=== PATIENT | female | born 2005 | race Caucasian/White ===

== ENCOUNTER → 2023-12-17 08:15 | Outpatient (BNV) | payer OTHER, SELFPAY | PROVIDERS: Visit Provider Psychiatry & Neurology Psychiatry | DX: F33.1 Major depressive disorder, recurrent, moderate (principal); F34.89 Other specified persistent mood disorders; F90.9 Attention-deficit hyperactivity disorder, unspecified type; F41.1 Generalized anxiety disorder; F43.12 Post-traumatic stress disorder, chronic; F12.10 Cannabis abuse, uncomplicated | CPT/HCPCS: 90792; 99213 ==

== ENCOUNTER 2023-12-28 08:47 | Outpatient (REF) | payer OTHER, SELFPAY ==
[2023-12-28 09:07] LABS: MANUAL DIFF FLAG NO
[2023-12-28 10:51] LABS: Basophils Absolute Auto 0.1 X10*3/uL (0.0-0.2); Basophils Percent Auto 0.7 % (0-2); Eosinophils Absolute Auto 0.3 X10*3/uL (0.0-0.4); Eosinophils Percent Auto 3.8 % (0-4); Hematocrit 41.7 % (37.0-47.0); Hemoglobin 13.8 g/dl (12.0-16.0); Imm Gran Abs Auto 0.03 X10*3/uL (0.00-0.03); Imm Gran Pct Auto 0.4 % (0.0-0.4); Lymphocytes Absolute Auto 1.8 X10*3/uL (1.2-4.9); Lymphocytes Percent Auto 25.6 % (20-40); Mean Corpuscular HGB Conc 33.1 g/dl (31.0-35.0); Mean Corpuscular Hemoglobin 29.4 pg (27.0-33.0); Mean Corpuscular Volume 88.9 fL (80.0-98.0); Mean Platelet Volume 9.7 fL (9.4-12.3); Monocytes Absolute Auto 0.4 X10*3/uL (0.1-1.2); Monocytes Percent Auto 4.9 % (2-11); Neutrophils Absolute Auto 4.6 x10*3/uL (2.0-8.3); Neutrophils Percent Auto 64.6 % (45-73); Platelet Count 288 X10*3/uL (160-400); Red Blood Count 4.69 X10*6/uL (4.20-5.50); Red Cell Distribution Width 13.2 % (11.0-16.0); White Blood Count 7.2 X10*3/uL (4.8-10.8)
[2023-12-28 11:15] LABS: Estimated Average Glucose 94 mg/dL; Hemoglobin A1c % 4.9 % (<6.0)
[2023-12-28 11:22] LABS: Alanine Aminotransferase 10 U/L (0-31); Albumin Level 4.3 g/dL (3.5-5.0); Alkaline Phosphatase 66 U/L (39-117); Anion Gap 10 (12-20); Aspartate Amino Transferase 16 U/L (5-31); Bilirubin Total 0.5 mg/dL (0.0-1.0); Blood Urea Nitrogen 9 mg/dL (9-16); Calcium 9.2 mg/dL (8.4-10.2); Carbon Dioxide 28 mmol/L (22-29); Chloride 106 mmol/L (96-108); Cholesterol 124 mg/dL (<200); Estimated Glomerular Filt Rate > 60; Glucose Fasting 93 mg/dL (60-99); HDL Cholesterol 46 mg/dL (>40); Iron 92 mcg/dL (30-160); LDL Cholesterol Calculated 68 mg/dL (<100); Percent Iron Saturation 29 % (15-50); Potassium 3.8 mmol/L (3.3-5.1); Sodium 140 mmol/L (135-145); Total Iron Binding Capacity 314 mcg/dL (228-428); Total Protein 7.1 g/dL (6.5-8.0); Triglycerides 54 mg/dL (<150); Unsaturated Iron Binding 222 ug/dL
[2023-12-28 11:27] LABS: Ferritin 78 ng/mL (10-122); Vitamin D 25-OH Total 29.2 ng/mL (>30)
[2023-12-28 12:59] LABS: Folate 7.3 ng/mL (> or = 4.0); Vitamin B12 594 pg/mL (200-900)
[2023-12-29 08:52] LABS: Prolactin 11.9 ng/mL
== END 2023-12-28 08:48 | disposition home or self-care (01) ==
LOC: HO.LAB 08:47
PROVIDERS: Visit Provider Psychiatry & Neurology Psychiatry
DX: F39 Unspecified mood [affective] disorder (principal); F41.0 Panic disorder [episodic paroxysmal anxiety]; Z13.1 Encounter for screening for diabetes mellitus
CPT/HCPCS: 36415; 80053; 80061; 82306; 82607; 82728; 82746; 83036; 83540; 83735; 84146; 84439; 84443; 85025

== ENCOUNTER 2023-12-30 08:15 | Outpatient (RCR) | payer OTHER, SELFPAY ==
[2023-12-17 10:43] VITALS: BP 115/84; PULSE 85; TEMP 37; BMI 31.3
--- NOTE | 2023-12-17 11:32 | PC.ADMIT ---
Patient is a 18 year old female college student who was referred to PHP by [facility] crisis in [facility] where she self presented d/t increased anxiety with thoughts to self harm. Feeling overwhelmed with her father who just got out of [employer] who has been trying to contact her. She stated she does not know how to handle this at this time. She has not had any contact with him at this time. She also reports work, school, financial stresses. Patient currently living with college roommates in [place]. Attends [employer] in [place]. She is a Communications major. Patient is alert and oriented x4. Calm and cooperative. Thoughts are logical and clear. She presented with depressed mood and anxious affect. Denied SI, denied thoughts to self harm, No HI. She received a copy of her safety plan if needed. Reports she dissociates at times and has feelings of anger regarding her trauma history. Patient reports she is smoking 2 bowls of marijuana a night and is thinking about cutting down use as she stated she is smoking too much. Medications reconciled with patient and patient's pharmacy. She stated she sometimes forgets to take her medications. Patient also stated she recently saw her prescriber and was prescribed Rexulti however there is not prescription at the pharmacy for this at this time. Patient stated she has not received the prescription as of yet as she met with her prescriber yesterday. She stated she will fill out a medication update form when she receives this medication.
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
--- NOTE | 2023-12-20 11:19 | HO.PHP ---
Antionette was spotted by [facility] staff and she appeared to be tearful. She is struggling with the relationship with her father as he has been out of care home and texting her. He is responding like he was when he was drinking, so she believes that he is not in sober housing. She received a text from her father's friend for support in which she told staff all about the support she has given to her father over the years to no avail, he will not help himself. She is struggling to regulate herself given all this information, so this write met with her to process this. She decided to make a phone call to her father's friend who was stating he need medical care and might be going back to care home. Antionette informed this marketing copywriter that she is her father's healthcare proxy, and he has limited supports. She was given time to call her father's friend and process this further with staff if needed. No safety concerns were apparent.
--- NOTE | 2023-12-20 14:05 | HO.PHP ---
After Antionette's conversation with her father's friend, she received news that her father only has about 4 months to live and will most likely do so in half-way. Antionette stated she has been pre-grieving his now for a while, but she requested to leave early as the best way she knows how to cope and process is with music, and she plans to journal. She stated that she is having two friends over tonight, and she disclosed no safety concerns.
--- NOTE | 2023-12-22 07:43 | HO.PHP ---
PHP staff member faxed over the referral to [facility] for OP therapy for Antionette Mcclelland at the [place] [facility].
--- NOTE | 2023-12-23 14:44 | HO.PHP ---
Client's case has been opened and reviewed in team.
--- NOTE | 2023-12-24 08:04 | HO.PHP ---
PHP staff member received a message from the admin, Tianna, stating that Antionette will not be in today and no safety concerns were reported. Antionette will be in attendance to program on Wednesday.
--- NOTE | 2023-12-29 14:49 | HO.PHP ---
[facility] staff member received the OP therapy intake appointment for Antionette in which it is scheduled on January 04, 2024 at 10 AM with Edinson Hoang via telehealth. Antionette has a med provider appointment scheduled for January 26, 2024 at 2 PM with Jennifer Nicole via telehealth.
--- NOTE | 2023-12-30 22:00 | P.PNPSP_ITS ---
Subjective Subjective Date of Service: 12/30/23 Reason For Visit: ADHD,depression Interim History: Patient seen for follow-up, anticipating discharge at the end of program today.? Reports no acute issues or concerns. Medication compliant, medications well- tolerated. Denies any adverse effects.? Mood is stable.? Denies any hopelessness or SI. Denies thoughts of harming self or others at this time. Denies any aggressive ideation or HI. Denies any paranoia or AH or VH. Sleep, appetite, energy stable. Medication Compliance: Yes Side effects from medications: No Attending Groups: Yes Review of Systems Acute medical concerns: No Mental Status Exam Mental Status Exam Narrative: Alert, oriented, in no acute distress. Calm, cooperative. Mood stable, affect appropriate. Speech normal. Thought process linear, coherent, more goal- directed. Thought content related to stressors, future-oriented, denies any helplessness, hopelessness or SI.? No aggressive ideation or HI. No paranoia or delusional content elicited. No evidence of psychosis. Insight and judgment fair-good. Diagnostics Vital Signs (24Hr): BMI result Body Mass Index 31.3 Assessment & Plan Assessment & Plan (1) MDD (major depressive disorder), recurrent episode, moderate: Status: Acute Code(s): F33.1 - Major depressive disorder, recurrent, moderate (2) Other specified persistent mood disorders: Status: Acute Code(s): F34.89 - Other specified persistent mood disorders (3) ADHD (attention deficit hyperactivity disorder): Status: Acute Code(s): F90.9 - Attention-deficit hyperactivity disorder, unspecified type (4) REYES (generalized anxiety disorder): Status: Acute Code(s): F41.1 - Generalized anxiety disorder (5) Chronic post-traumatic stress disorder (PTSD): Status: Acute Code(s): F43.12 - Post-traumatic stress disorder, chronic (6) Cannabis abuse: Status: Acute Code(s): F12.10 - Cannabis abuse, uncomplicated Plan Discharge from [facility] continue Lexapro 20 mg qd continue clonidine 0.1 mg qhs continue hydroxyzine 10 mg tablets (1/2 tablet - 2 tablets) prn sleep, anxiety transition to long acting [facility] - Concerta 18 mg qam reduce Ritalin to 10-20 mg qd (10 mg qd prn focus/attention w AM Concerta -or- 20 mg qd Ritalin w/o Concerta) Will defer further medication management to outpatient provider *Safety plan reviewed *Discharge diagnoses, treatment course, discharge plan have been reviewed with patient (including medication regime, medication management, potential side effects) as well as treatment rationale were also revisited *Discharge paperwork signed and given to patient, copy sent for scanning to chart Patient educated on: diagnosis, medication risk/benefits and substance abuse Informed Consent: understands Reason for contiued partial hosp. stay Substantial Risk for: stable for discharge Certification I certify that partial hospital treatment is medically necessary due to the symptoms and problems resulting from the patient's mental illness and the failure to treat the patient at the partial hospital level of care would likely result in the patient requiring inpatient psychiatric care which could not be prevented at a less intensive level of care. Total time managing care of this patient today _30___ minutes. Discharge Plan Discharge Attending provider: Tere Kerr Additional Instructions: The OP therapy intake appointment for Antionette is scheduled on January 04, 2024 at 10 AM with Edinson Hoang via teleMed Access. Antionette has a med provider appointment scheduled for January 26, 2024 at 2 PM with Jennifer Nicole via telehealth. Medications: New methylphenidate HCl [Concerta] 18 mg tablet extended release 24hr 18 mg PO QAM Qty: 14 0RF Rx Instructions: Partial Fill upon patient request. cholecalciferol (vitamin D3) [Vitamin D3] 50 mcg (2,000 unit) tablet 50 mcg PO DAILY Qty: 30 0RF Continued clonidine HCl 0.1 mg Tablet 0.1 mg PO BEDTIME hydroxyzine HCl 10 mg Tablet 5 - 20 mg PO TID Rx Instructions: As directed. escitalopram oxalate [Lexapro] 20 mg Tablet 20 mg PO DAILY Changed methylphenidate HCl 20 mg Tablet 10 - 20 mg PO DAILY Qty: 14 0RF Stand Alone Forms: Patient Portal Discharge page Patient Education: Depression (DC) Print Language: Greenlandic
== END 2023-12-30 23:59 | disposition home or self-care (01) ==
LOC: HO.PHPA 08:15
PROVIDERS: Visit Provider Psychiatry & Neurology Psychiatry
DX: F33.1 Major depressive disorder, recurrent, moderate (principal); F34.89 Other specified persistent mood disorders; F90.9 Attention-deficit hyperactivity disorder, unspecified type; F41.1 Generalized anxiety disorder; F43.12 Post-traumatic stress disorder, chronic; F12.10 Cannabis abuse, uncomplicated; Z79.899 Other long term (current) drug therapy
CPT/HCPCS: 90791; 90853